=== PATIENT | male | born 1970 | race Caucasian/White ===

== ENCOUNTER → 2017-07-27 | Outpatient (CLI) | payer OTHER ==
--- NOTE | 2017-07-27 11:01 | NM ---
EXAMINATION TYPE: NM stress cardiolite complete DATE OF EXAM: 07/27/2017 COMPARISON: NONE HISTORY: Hypertension, I 10, heart disease I25.10 TECHNIQUE: After the intravenous administration of 11.24 mCi Tc 99m Sestamibi - Rest images obtained 45 minutes post injection. The patient exercised using a AILEEN protocol and 1 minute prior to peak exercise was injected with 23.7 mCi Tc 99m Sestamibi - Stress images obtained 10 minutes post inject ion. FINDINGS: Targeted heart rate was achieved during performance of the study. Review of stress and rest SPECT janet ges demonstrates decreased radiopharmaceutical uptake on stress and rest images along the inferoapica l left ventricle. Gated analysis shows normal wall motion with an estimated left ventricular ejectio n fraction of 69 %. IMPRESSION: No scintigraphic evidence for reversible ischemia. Consider echocardiography for evaluation of elevat ed ejection fraction. Findings suggest prior infarct along the inferior apical left ventricle.
--- NOTE | 2017-07-27 11:58 | EST ---
EXERCISE STRESS DATE OF SERVICE: 07/27/2017 AGE: 47 SEX: Male HT: 70" WT: 250 pounds PROTOCOL: CARDIOLITE AILEEN STAGE: 12.1 DURATION OF EXERCISE: 10:30 HEART RATE REST: 64 BLOOD PRESSURE REST: 123/83 MAXIMUM HEART RATE ACHIEVED: 161 MAXIMUM BLOOD PRESSURE: 229/51 85% MPHR: 146 100% MPHR: 172 METS: 12.1 INDICATIONS: Hypertension. CLINICAL INFORMATION: Baseline rhythm is sinus mechanism, rate 64, normal axis, intervals, early repolarization. Baseline blood pressure 123/83 mmHg. Patient exercised on Aileen protocol for 10 minute 30 seconds reaching peak rate of 161 beats per minute, which is equal to 93% maximum predicted heart rate. Peak blood pressure 229/51 mmHg. Test was terminated secondary to fatigue. There is no chest pain. Electrocardiograph monitoring revealed no evidence of diagnostic ischemic ST deviation. Cardiolite was injected at peak exercise. CONCLUSION: 1. Good exercise tolerance with normal electrocardiograph response to exercise. 2. Nuclear images will be reported separately. MMODL / IJN: [id number] /
== END | disposition home or self-care (01) ==
LOC: RADNMMAIN 07:50
PROVIDERS: ATTEND Internal Medicine Cardiovascular Disease
DX: I25.10 Atherosclerotic heart disease of native coronary artery without angina pectoris (principal); I11.9 Hypertensive heart disease without heart failure
CPT/HCPCS: 93017; 78452; A9500

== ENCOUNTER 2017-08-04 20:17 | Emergency (ER) | payer OTHER ==
[2017-08-04 20:37] VITALS: BP 155/87; PULSE 80; RESP 16; TEMP 99
--- NOTE | 2017-08-04 21:25 | ED ---
Extremity Problem HPI - General Chief complaint: Extremity Problem,Nontraumatic Stated complaint: right arm numbness-3 wks Time Seen by Provider: 08/04/17 21:04 Source: patient, RN notes reviewed Mode of arrival: ambulatory Limitations: no limitations - History of Present Illness Initial comments: This is a 47-year-old male who presents to the emergency department with chief complaint of numbness and tingling of the right upper extremity. Patient states that this is been present for the past 3 weeks. He states the numbness and tingling comes on when he is using a mouse at work and when his arm is dangling at his side. He states that he must pick his arm up to make the sensation subside. Patient reports a history of a bicep muscle tear with subsequent surgery. He also states he believes he may have had carpal tunnel surgery in that right hand. Patient denies any specific injuries or trauma. He does state he has a history of 2 myocardial infarctions and 2 stents. Patient states he feels like it is his entire hand that goes numb and not just individual fingers. Denies fevers or chills, shortness of breath or chest pain , abdominal pain, nausea or vomiting, dizziness or headache. - Related Data Home Medications Medication Instructions Recorded Confirmed Aspirin [Adult Low Dose Aspirin EC] 81 mg PO HS 04/15/15 04/17/15 Clopidogrel Bisulfate [Clopidogrel] 75 mg pe PO HS 04/15/15 04/17/15 Metoprolol Tartrate 25 mg PO HS 04/15/15 04/17/15 Previous Rx's Medication Instructions Recorded HYDROcodone/APAP 5-325MG [Farber 5] 1 each PO Q6HR PRN #60 tab 04/17/15 Ibuprofen 600 mg PO Q6HR #30 tablet 08/04/17 Allergies Allergy/AdvReac Type Severity Reaction Status Date / Time No Known Allergies Allergy Verified 08/04/17 20:36 Review of Systems ROS Statement: Those systems with pertinent positive or pertinent negative responses have been documented in the HPI. ROS Other: All systems not noted in ROS Statement are negative. Past Medical History Past Medical History: Coronary Artery Disease (CAD), Hyperlipidemia, Hypertension, Myocardial Infarction ([place]) Additional Past Medical History / Comment(s): [place] X2, 07/2010 & 10/2011. Last Myocardial Infarction Date:: 10/2011 History of Any Multi-Drug Resistant Organisms: None Reported Past Surgical History: Heart Catheterization With Stent, Orthopedic Surgery Additional Past Surgical History / Comment(s): I&D RT ARM, D/T LEAD. CTR RT HAND. STENTS X2. RT ARM BICEP TENDON REPAIR, 2 SCREWS. Past Anesthesia/Blood Transfusion Reactions: No Reported Reaction Date of Last Stent Placement:: 10/2011 Past Psychological History: No Psychological Hx Reported Smoking Status: Current every day smoker Past Alcohol Use History: Occasional Past Drug Use History: None Reported - Past Family History Mother Family Medical History: No Reported History General Exam - General Exam Comments Initial Comments: General: Awake and alert, well-developed; in no apparent distress. HEENT: Head atraumatic, normocephalic. Pupils are equal, round and reactive to light. Extraocular movements intact. Oropharynx moist without erythema or exudate. Neck: Supple. Normal ROM. Cardiovascular: Regular rate and rhythm. No murmurs, rubs or gallops. Chest symmetrical. Respiratory: Lungs clear to auscultation bilaterally. No wheezes, rales or rhonchi. Normal respiratory effort with no use of accessory muscles. Musculoskeletal: Normal ROM of right wrist and hand. There is no swelling, erythema or contusions noted. No tenderness on palpation. Positive Phalen sign. Sensation is intact. Radial pulses are 2+ equal and palpable bilaterally. Skin: Embden, warm and dry without rashes or lesions. Neurological: Alert and oriented x3. CN II-XII grossly intact. Speech is fluent and answers are appropriate. No focal neuro deficits. Psychiatric: Normal mood and affect. No overt signs of depression or anxiety noted. Limitations: no limitations Course Vital Signs 08/04/17 20:33 Temperature 99.0 F Pulse Rate 80 Respiratory 16 Rate Blood Pressure 155/87 O2 Sat by Pulse 98 Oximetry Medical Decision Making - Medical Decision Making This is a 47-year-old male who presents to the emergency department with chief complaint of right arm numbness and tingling for the past 3 weeks. Patient reports that his entire hand feels numb and tingly while he is using his mouse at work and while his arm dangles at his side. Denies pain. He states that he may have a history of carpal tunnel in that right hand as well as a bicep tear with subsequent surgery. Denies any specific injury or trauma. Patient will be started on anti-inflammatories. He will be given a follow-up to orthopedics. Patient is in agreement with plan and voices understanding. All questions were answered. Disposition Clinical Impression: Paresthesia of right upper extremity Disposition: HOME SELF-CARE Condition: Good Instructions: Paresthesia (ED) Additional Instructions: Please follow-up with Dr. Nicole, orthopedics within 1-2 days. Please take medications as prescribed. Please follow up with primary care provider within 1- 2 days. Return to emergency department if symptoms should worsen or any concerns arise. Prescriptions: Ibuprofen 600 mg PO Q6HR #30 tablet Referrals: [facility],Clinic [Primary Care Provider] - 1-2 days [place] Nicole MD [STAFF PHYSICIAN] - 1-2 days Time of Disposition: 21:24
== END 2017-08-04 21:28 | disposition home or self-care (01) ==
LOC: EC 20:17
DX: R20.2 Paresthesia of skin (principal); I25.10 Atherosclerotic heart disease of native coronary artery without angina pectoris; I10 Essential (primary) hypertension; I25.2 Old myocardial infarction; F17.200 Nicotine dependence, unspecified, uncomplicated; Z95.5 Presence of coronary angioplasty implant and graft; Z79.82 Long term (current) use of aspirin; Z79.01 Long term (current) use of anticoagulants; Z79.899 Other long term (current) drug therapy
CPT/HCPCS: 99283

== ENCOUNTER → 2018-04-07 | Outpatient (CLI) | payer BC ==
--- NOTE | 2018-04-07 16:17 | MR ---
EXAMINATION TYPE: MR cervical spine wo con DATE OF EXAM: 04/07/2018 COMPARISON: None HISTORY: Radiculopathy, cervical region, right arm numbness TECHNIQUE: Multiplanar, multisequence images of the cervical spine were acquired. The exam was not completed due to claustrophobia. No axial images obtained. Cervical vertebral bodies show preserved height. Some loss of disc height i s present at intervertebral levels. There is multilevel spondylosis with endplate discogenic marrow s ignal change. Suspect some posterior extension of endplate disc complex C7-T1. Cervical segments are intact. There is normal alignment. Craniovertebral junction relationships ar e within normal limits. IMPRESSION: Degenerative disc disease. Exam is limited for evaluation however.
== END | disposition home or self-care (01) ==
LOC: RADMRIMAIN 09:33
PROVIDERS: ATTEND Family Medicine
DX: M50.30 Other cervical disc degeneration, unspecified cervical region (principal); F40.240 Claustrophobia; Z53.8 Procedure and treatment not carried out for other reasons
CPT/HCPCS: 72141

== ENCOUNTER → 2021-01-28 | Outpatient (CLI) | payer OTHER ==
[~2021-01-28] MED LIST: REGADENOSON 0.4 MG/5 ML SYRINGE IV PRN
--- NOTE | 2021-01-28 11:19 | P.STRESS ---
- Stress Test Note Stress Test Results/Findings: Exam Performed: NM stress lexiscan cardiolite Exam Date: 01/28/21 Reason for Exam: CAD Height: 5 ft 10 in Weight: 114 kg Protocol: LEXISCAN CARDIOLITE Stage: NA Duration of Exercise: NA Resting Heart Rate: 60 Resting Blood Pressure: 122/75 Maximum Achieved Heart Rate: 88 Maximum Achieved Blood Pressure: 136/79 85% PMHR: 144 100% PMHR: 169 METS: NA Technologist Comment: Stress Test Results/Findings: This is a 50-year-old gentleman with history of hypertension, diabetes, hypercholesterolemia and smoking history, being evaluated for cardiac status. Stress data: Baseline EKG showed sinus rhythm with nonspecific ST-T changes and PVCs. Blood pressure at rest is 120/75, pulse rate of 60. A standard dose of Lexiscan was infused. EKGs taken during and after infusion did not reveal any significant changes from the baseline. Occasional PVCs are noted. Final impression: #1. Negative Lexiscan stress test #2. Report on nuclear portion of the test to be given by the radiologist.
--- NOTE | 2021-01-28 11:45 | NM ---
EXAMINATION TYPE: NM stress lexiscan cardiolite DATE OF EXAM: 01/28/2021 COMPARISON: 07/27/2017 HISTORY: Pain TECHNIQUE: After the intravenous administration of 9.9 mCi Tc 99m Sestamibi - Cardiolite resting SPE CT images acquired 50 minutes post injection. The patient received 0.4mg Lexiscan, 24.8 mCi Tc 99m Sestamibi - Stress images obtained [address] injection FINDINGS: Review of stress and rest SPECT images demonstrates a persistent defect involving the inferior and in ferior apical myocardium. Area of stress-induced reversibility involving the apex suggested. Correlat e clinically.. Gated analysis shows normal wall motion with an estimated left ventricular ejection f raction of 52 %. Report called to referring clinician 11:35 AM 01/28/2021. IMPRESSION: 1. Predominantly fixed defect involving the apex and inferior apical portion of the myocardium. Small area of stress-induced reversible ischemia in the apex is suspected correlate clinically.
== END | disposition home or self-care (01) ==
LOC: RADNMMAIN 08:08
PROVIDERS: ATTEND Nurse Practitioner Adult Health
DX: I51.0 Cardiac septal defect, acquired (principal)
CPT/HCPCS: 93017; 78452; A9500; J2785

== ENCOUNTER 2022-01-09 09:25 | Day surgery (SDC) | payer OTHER ==
[2022-01-07 12:53] VITALS: BMI 33.7
[~2022-01-09 09:25] MED LIST changes: +LACTATED RINGERS 1,000 ML IV SCH; +LIDOCAINE 1% (10MG/ML) FOR IV START INTRADERMA PRN; -REGADENOSON 0.4 MG/5 ML SYRINGE IV PRN
[2022-01-09 10:02] VITALS: TEMP 97.5
[2022-01-09] MEDS ORDERED: LACTATED RINGERS 1,000 ML IV ONE (10:03)
[2022-01-09 10:11] LABS: Glucose,Whole Blood 113 mg/dL (70-110)
[2022-01-09] MEDS ORDERED: PROPOFOL 10 MG/ML 20 ML VIAL IV ONE (11:02)
[2022-01-09] MEDS ORDERED: LIDOCAINE 2% INJ 20 MG/ML (2 ML VIAL) ONE (11:02)
--- NOTE | 2022-01-09 11:22 | P.PCN ---
Date of Procedure: 01/09/22 Procedure(s) Performed: BRIEF HISTORY: Patient is a 51-year-old pleasant male scheduled for an elective colonoscopy as a part of evaluation of Hemoccult-positive stool. PROCEDURE PERFORMED: Colonoscopy with snare polypectomy PREOPERATIVE DIAGNOSIS: Hemoccult-positive stool. IV sedation per Anesthesia. PROCEDURE: After informed consent was obtained, the patient, was brought into the endoscopy unit. IV sedation was administered by Anesthesia under continuous monitoring. Digital rectal examination was normal. Initially the Olympus CF-160 flexible video colonoscope was then inserted in the rectum, gradually advanced into the cecum without any difficulty. Careful examination was performed as the scope was gradually being withdrawn. Ileocecal valve and the appendiceal orifice were visualized and appeared normal. Prep was excellent. Mucosa of the cecum, ascending colon, transverse colon, descending colon, sigmoid colon, and rectum appeared normal. There was a 5 mm and 1 cm distal rectal polyp status post snare polypectomy. Retroflexion was performed in the rectum and no lesions were seen. The patient tolerated the procedure well. IMPRESSION: 5 mm and 1 cm distal rectal polyp status post polypectomy Rest of the colon appeared normal. RECOMMENDATIONS: Findings of this examination were discussed with the patient as well as his family. He was advised to follow with the biopsy results. If the biopsy reveals adenoma he can have a repeat colonoscopy in 3 years.
[2022-01-09 11:48] VITALS: BP 114/73; PULSE 66; RESP 20
== END 2022-01-09 11:59 | disposition home or self-care (01) ==
LOC: ORWHC2ENDO 09:25
PROVIDERS: ATTEND Internal Medicine Gastroenterology
DX: D12.8 Benign neoplasm of rectum (principal); K62.1 Rectal polyp; I25.10 Atherosclerotic heart disease of native coronary artery without angina pectoris; I10 Essential (primary) hypertension; E78.5 Hyperlipidemia, unspecified; Z95.5 Presence of coronary angioplasty implant and graft; I25.2 Old myocardial infarction; F17.210 Nicotine dependence, cigarettes, uncomplicated; E11.9 Type 2 diabetes mellitus without complications; Z98.890 Other specified postprocedural states; Z79.84 Long term (current) use of oral hypoglycemic drugs; Z79.82 Long term (current) use of aspirin; Z79.899 Other long term (current) drug therapy; Z88.8 Allergy status to other drugs, medicaments and biological substances
CPT/HCPCS: 88305; 45385; J2704; J2001